=== PATIENT | female | born 1970 | race Two or more races ===

== ENCOUNTER 2023-11-08 11:54 | Emergency (ER) | payer OTHER ==
[~2023-11-08] VITALS: Ht 157.5 cm; Wt 72.6 kg
[2023-11-08] MEDS ORDERED: ATACAND32 MG (12:38)
[2023-11-08] MEDS ORDERED: ACETAMINOPHEN 325 MG TABLET PO ONE (13:15)
== END 2023-11-08 16:02 | disposition home or self-care (01) ==
LOC: ER 11:54
DX: S09.8XXA Other specified injuries of head, initial encounter (principal); W18.39XA Other fall on same level, initial encounter; Y93.I9 Activity, other involving external motion; Y92.89 Other specified places as the place of occurrence of the external cause; J32.0 Chronic maxillary sinusitis